=== PATIENT | female | born 1970 | race Caucasian/White ===

== ENCOUNTER 2017-08-16 13:15 | Emergency (ER) | payer OTHER ==
[~2017-08-16] VITALS: Ht 157.5 cm; Wt 95.2 kg
[~2017-08-16 13:15] MED LIST: ALBU90OI INH; AMOX500 PO; Adipex-P37.5 MG PO; BUSP10 PO; BUSP15 PO; CODGUAEL PO; DIAZ5 PO; DICLOFENAC SOD100 G1 TOP; DIPH50 PO; DOXY100 PO; FLUO20 PO; Flonase 0.05% N16 GM; HYDACE5 PO; IBUP800; IBUP800 PO; LOMAIRA8 MG PO; MEDR10 PO; META800 PO; MIRALAX17 GM PO; NAPR500 PO; NAPR550 PO; Norco 5-325 Ta1 EACH PO; OXYACE5T PO; PARO20 PO; PRED10 PO; PROACE100 PO; PROCODE120 PO; PROM25 PO; PSEU30 PO; Percocet 10-321 EACH PO; Prednisone20 MG PO; Pseudoephedrine30 MG PO; RXERYTOPTH OP; RXMETA800 PO; RXNAPNA550 PO; RXOXYACE PO; RXPROACE PO; SIMV10 PO; SULF10OPSA OS; VENLAFAXINE HCL75 MG PO; Valium5 MG PO; WORK NOTE; [UNRECOGNIZED DRUG - REMARK]
[2017-08-16 14:21] LABS: BASOPHILS ABSOLUTE AUTO 0.11 K/mm3 (0.00-0.23); BASOPHILS PERCENT AUTO 1 % (0-2); EOSINOPHILS ABSOLUTE AUTO 0.21 K/mm3 (0.00-0.68); EOSINOPHILS PERCENT AUTO 2 % (0-6); Hematocrit 30.8 % (33.0-51.0); Hemoglobin 9.4 g/dL (11.5-16.0); IMMATURE GRAN ABSOLUTE AUTO 0.02 K/mm3 (0.00-0.10); IMMATURE GRAN PERCENT AUTO 0 % (0-1); LYMPHOCYTES ABSOLUTE AUTO 1.93 K/mm3 (0.84-5.20); LYMPHOCYTES PERCENT AUTO 22 % (21-46); MONOCYTES ABSOLUTE AUTO 0.46 K/mm3 (0.16-1.47); MONOCYTES PERCENT AUTO 5 % (4-13); Mean Corpuscular HGB 22.3 pg (26.0-34.0); Mean Corpuscular HGB Conc 30.5 g/dL (31.5-36.5); Mean Platelet Volume 9.2 fL (9.1-12.4); NEUTROPHILS ABSOLUTE AUTO 6.04 K/mm3 (1.96-9.15); NEUTROPHILS PERCENT AUTO 69 % (41-73); Platelet Count 471 K/mm3 (150-400); RDW Coefficient Variation 15.6 % (11.7-14.2); Red Blood Cell Count 4.21 M/mm3 (3.80-5.20); White Blood Cell Count 8.77 K/mm3 (4.00-11.30)
[2017-08-16 14:23] LABS: Mean Corpuscular Volume 73 fL (80-100)
[2017-08-16 14:33] LABS: Source, Urine Clean Catch
[2017-08-16 14:40] LABS: Bilirubin, Urine Neg (Neg); Blood, Urine 4+ (Neg); Glucose Qualitative, Urine Neg (Neg); Ketones, Urine Neg (Neg); Leukocyte Esterase, Urine 3+ (Neg); Nitrite, Urine Neg (Neg); Protein, Urine Neg (Neg); Urobilinogen, Urine NORM (Normal)
[2017-08-16 14:52] LABS: Alanine Aminotransfer (ALT/SGP 34 U/L (12-78); Albumin, Blood 3.6 g/dL (3.4-5.0); Albumin/Globulin Ratio 0.8 (0.8-1.8); Alk Phos 81 U/L (50-136); Anion Gap 5 mmol/L (6-16); Aspartate Aminotrans (AST/SGOT 16 U/L (12-37); Bilirubin, Total 0.2 mg/dL (0.1-1.0); Blood Urea Nitrogen 15 mg/dL (8-24); Bun/Creatinine Ratio 34.2 (12.0-20.0); CO2, Blood 28 mmol/L (21-32); Calcium, Blood 9.4 mg/dL (8.5-10.1); Chloride, Blood 107 mmol/L (98-108); Creatinine, Blood 0.44 mg/dL (0.40-1.00); Globulin, Blood 4.3 g/dL (2.2-4.0); Glomerular Filtration Rate >60 (60-); Glucose, Blood 114 mg/dL (70-99); Potassium, Blood 3.7 mmol/L (3.5-5.5); Sodium, Blood 140 mmol/L (136-145); Total Protein, Blood 7.9 g/dL (6.4-8.2)
[2017-08-16 15:01] LABS: Appearance, Urine Clear (Clear); Color, Urine Yellow (P-Yellow)
[2017-08-16 15:03] LABS: Bacteria Few /hpf; Squamous Epithelial Cells Few /hpf (Few); White Blood Cells, Urine TNTC /hpf (0-5)
[2017-08-16] MEDS ORDERED: CEFD300 PO (16:49)
[2018-03-30] MEDS ORDERED: Zofran8 MG PO (23:38)
[2018-07-02] MEDS ORDERED: HYDPAM50 PO (23:42)
[2018-07-02] MEDS ORDERED: SIMV10 PO (23:42)
[2018-07-02] MEDS ORDERED: VENL150ER PO (23:42)
== END 2017-08-16 17:40 | disposition home or self-care (01) ==
LOC: ER 13:15
PROVIDERS: Emergency Medicine
DX: G89.18 Other acute postprocedural pain (principal); R10.31 Right lower quadrant pain; N39.0 Urinary tract infection, site not specified; F32.9 Major depressive disorder, single episode, unspecified; Z79.899 Other long term (current) drug therapy; Z90.710 Acquired absence of both cervix and uterus
CPT/HCPCS: 36415; 74177; 80053; 81001; 85025; 87086; 96361; 96374; 96375; 99284; J1885; J2405; J7030; Q9967

== ENCOUNTER 2018-03-15 22:22 | Emergency (ER) | payer OTHER ==
[~2018-03-15] VITALS: Ht 157.5 cm; Wt 90.7 kg
[~2018-03-15 22:22] MED LIST changes: +CEFD300 PO
[2018-03-15 23:20] LABS: BASOPHILS ABSOLUTE AUTO 0.08 K/mm3 (0.00-0.23); BASOPHILS PERCENT AUTO 1 % (0-2); EOSINOPHILS ABSOLUTE AUTO 0.23 K/mm3 (0.00-0.68); EOSINOPHILS PERCENT AUTO 3 % (0-6); Hematocrit 37.5 % (33.0-51.0); Hemoglobin 11.6 g/dL (11.5-16.0); IMMATURE GRAN ABSOLUTE AUTO 0.01 K/mm3 (0.00-0.10); IMMATURE GRAN PERCENT AUTO 0 % (0-1); LYMPHOCYTES ABSOLUTE AUTO 2.76 K/mm3 (0.84-5.20); LYMPHOCYTES PERCENT AUTO 33 % (21-46); MONOCYTES ABSOLUTE AUTO 0.53 K/mm3 (0.16-1.47); MONOCYTES PERCENT AUTO 6 % (4-13); Mean Corpuscular HGB Conc 30.9 g/dL (31.5-36.5); Mean Corpuscular Volume 74 fL (80-100); Mean Platelet Volume 9.5 fL (9.1-12.4); NEUTROPHILS ABSOLUTE AUTO 4.83 K/mm3 (1.96-9.15); NEUTROPHILS PERCENT AUTO 57 % (41-73); Platelet Count 358 K/mm3 (150-400); RDW Standard Deviation 48.5 fL (35.1-46.3); Red Blood Cell Count 5.05 M/mm3 (3.80-5.20); White Blood Cell Count 8.44 K/mm3 (4.00-11.30)
[2018-03-15 23:41] LABS: Alanine Aminotransfer (ALT/SGP 23 U/L (12-78); Albumin, Blood 3.6 g/dL (3.4-5.0); Albumin/Globulin Ratio 0.9 (0.8-1.8); Alk Phos 91 U/L (50-136); Anion Gap 8 mmol/L (6-16); Aspartate Aminotrans (AST/SGOT 24 U/L (12-37); Bilirubin, Total 0.2 mg/dL (0.1-1.0); Blood Urea Nitrogen 15 mg/dL (8-24); Bun/Creatinine Ratio 31.2 (12.0-20.0); CO2, Blood 27 mmol/L (21-32); Calcium, Blood 8.8 mg/dL (8.5-10.1); Chloride, Blood 105 mmol/L (98-108); Creatinine, Blood 0.48 mg/dL (0.40-1.00); Globulin, Blood 4.2 g/dL (2.2-4.0); Glomerular Filtration Rate >60 (60-); Glucose, Blood 115 mg/dL (70-99); Potassium, Blood 3.8 mmol/L (3.5-5.5); Sodium, Blood 140 mmol/L (136-145); Total Protein, Blood 7.8 g/dL (6.4-8.2); Troponin I <0.015 ng/mL (0.000-0.040)
== END 2018-03-16 00:27 | disposition home or self-care (01) ==
LOC: ER 22:22
PROVIDERS: Emergency Medicine
DX: R07.9 Chest pain, unspecified (principal); F41.9 Anxiety disorder, unspecified; F32.9 Major depressive disorder, single episode, unspecified; Z79.899 Other long term (current) drug therapy
CPT/HCPCS: 36415; 71046; 80053; 84484; 85025; 93005; 93010; 99285-25

== ENCOUNTER 2018-03-25 14:52 | Emergency (ER) | payer OTHER ==
[~2018-03-25] VITALS: Ht 157.5 cm; Wt 90.7 kg
[2018-03-25 15:19] LABS: Source, Urine Clean Catch
[2018-03-25 15:28] LABS: Bilirubin, Urine Neg (Neg); Blood, Urine 1+ (Neg); Glucose Qualitative, Urine Neg (Neg); Ketones, Urine Neg (Neg); Leukocyte Esterase, Urine 2+ (Neg); Nitrite, Urine Neg (Neg); Protein, Urine Neg (Neg); Urobilinogen, Urine NORM (Normal)
[2018-03-25 15:42] LABS: Appearance, Urine Clear (Clear); Color, Urine Yellow (P-Yellow)
[2018-03-25 15:42] LABS: BASOPHILS PERCENT AUTO 1 % (0-2); EOSINOPHILS ABSOLUTE AUTO 0.16 K/mm3 (0.00-0.68); EOSINOPHILS PERCENT AUTO 2 % (0-6); Hematocrit 39.1 % (33.0-51.0); Hemoglobin 12.3 g/dL (11.5-16.0); IMMATURE GRAN ABSOLUTE AUTO 0.02 K/mm3 (0.00-0.10); IMMATURE GRAN PERCENT AUTO 0 % (0-1); LYMPHOCYTES ABSOLUTE AUTO 1.83 K/mm3 (0.84-5.20); LYMPHOCYTES PERCENT AUTO 22 % (21-46); MONOCYTES ABSOLUTE AUTO 0.57 K/mm3 (0.16-1.47); MONOCYTES PERCENT AUTO 7 % (4-13); Mean Corpuscular HGB 23.3 pg (26.0-34.0); Mean Corpuscular HGB Conc 31.5 g/dL (31.5-36.5); Mean Corpuscular Volume 74 fL (80-100); Mean Platelet Volume 9.6 fL (9.1-12.4); NEUTROPHILS ABSOLUTE AUTO 5.53 K/mm3 (1.96-9.15); NEUTROPHILS PERCENT AUTO 68 % (41-73); Platelet Count 370 K/mm3 (150-400); RDW Coefficient Variation 18.3 % (11.7-14.2); RDW Standard Deviation 48.8 fL (35.1-46.3); Red Blood Cell Count 5.27 M/mm3 (3.80-5.20); White Blood Cell Count 8.21 K/mm3 (4.00-11.30)
[2018-03-25 15:45] LABS: Bacteria Mod /hpf; Red Blood Cells, Urine 0-2 /hpf (0-2); Squamous Epithelial Cells Many /hpf (Few)
[2018-03-25 16:01] LABS: Alanine Aminotransfer (ALT/SGP 21 U/L (12-78); Albumin, Blood 3.4 g/dL (3.4-5.0); Albumin/Globulin Ratio 0.8 (0.8-1.8); Alk Phos 87 U/L (50-136); Anion Gap 5 mmol/L (6-16); Aspartate Aminotrans (AST/SGOT 17 U/L (12-37); Bilirubin, Total 0.1 mg/dL (0.1-1.0); Blood Urea Nitrogen 13 mg/dL (8-24); Bun/Creatinine Ratio 23.9 (12.0-20.0); CO2, Blood 29 mmol/L (21-32); Calcium, Blood 9.1 mg/dL (8.5-10.1); Chloride, Blood 106 mmol/L (98-108); Creatinine, Blood 0.54 mg/dL (0.40-1.00); Globulin, Blood 4.2 g/dL (2.2-4.0); Glomerular Filtration Rate >60 (60-); Glucose, Blood 107 mg/dL (70-99); Potassium, Blood 4.3 mmol/L (3.5-5.5); Sodium, Blood 140 mmol/L (136-145); Total Protein, Blood 7.6 g/dL (6.4-8.2)
[2018-03-25] MEDS ORDERED: Zofran Odt4 MG SL (17:16)
[2018-03-25] MEDS ORDERED: Omeprazole20 M1 PO (17:16)
[2018-03-30] MEDS ORDERED: Zofran8 MG PO (23:38)
== END 2018-03-25 17:30 | disposition home or self-care (01) ==
LOC: ER 14:52
PROVIDERS: Physician Assistant
DX: R10.11 Right upper quadrant pain (principal); R10.13 Epigastric pain; R11.2 Nausea with vomiting, unspecified; F32.9 Major depressive disorder, single episode, unspecified; Z79.899 Other long term (current) drug therapy
CPT/HCPCS: 36415; 76705; 80053; 81001; 83690; 85025; 87086; 96361; 96374; 96375; 99284-25; C9113; J2405; J7030

== ENCOUNTER 2018-04-02 02:04 | Emergency (ER) | payer OTHER ==
[~2018-04-02] VITALS: Ht 157.5 cm; Wt 91.2 kg
[~2018-04-02 02:04] MED LIST changes: +Omeprazole20 M1 PO; +Zofran Odt4 MG SL; +Zofran8 MG PO
[2018-04-02] MEDS ORDERED: Vistaril50 MG PO (05:49)
== END 2018-04-02 06:00 | disposition home or self-care (01) ==
LOC: ER 02:04
DX: F41.9 Anxiety disorder, unspecified (principal); Z79.899 Other long term (current) drug therapy; F32.9 Major depressive disorder, single episode, unspecified
CPT/HCPCS: 99283; Q3014

== ENCOUNTER 2018-11-01 21:06 | Emergency (ER) | payer OTHER ==
[~2018-11-01] VITALS: Ht 157.5 cm; Wt 90.7 kg
[~2018-11-01 21:06] MED LIST changes: +HYDPAM50 PO; +VENL150ER PO; +Vistaril50 MG PO
== END 2018-11-01 22:10 | disposition home or self-care (01) ==
LOC: ER 21:06
DX: K03.81 Cracked tooth (principal); F32.9 Major depressive disorder, single episode, unspecified; F41.9 Anxiety disorder, unspecified; Z79.899 Other long term (current) drug therapy
CPT/HCPCS: 41899; 99282-25

== ENCOUNTER → 2018-11-20 | Outpatient (CLI) | payer OTHER ==
[2018-11-20 19:26] LABS: Appearance, Urine Clear (Clear); Bilirubin, Urine Neg (Neg); Blood, Urine 2+ (Neg); Color, Urine Yellow (P-Yellow); Glucose Qualitative, Urine Neg (Neg); Ketones, Urine Neg (Neg); Leukocyte Esterase, Urine 1+ (Neg); Nitrite, Urine Neg (Neg); Protein, Urine Neg (Neg); Urobilinogen, Urine NORM (Normal)
[2018-11-20 19:40] LABS: Bacteria Few /hpf; Mucus Light (0-Heavy); Red Blood Cells, Urine 0-2 /hpf (0-2); Squamous Epithelial Cells Mod /hpf (Few)
[2018-11-21 09:52] LABS: Candida species (DNA Probe) Negative (NEGATIVE); G. vaginalis (DNA Probe) Positive (NEGATIVE); T. vaginalis (DNA Probe) Negative (NEGATIVE)
== END | disposition home or self-care (01) ==
LOC: LAB SHORT 19:08 → LAB 19:08
PROVIDERS: Obstetrics & Gynecology
DX: N76.0 Acute vaginitis (principal); R39.9 Unspecified symptoms and signs involving the genitourinary system
CPT/HCPCS: 81001; 87086; 87480; 87510; 87660

== ENCOUNTER 2019-04-07 20:47 | Emergency (ER) | payer OTHER ==
[~2019-04-07] VITALS: Ht 154.9 cm; Wt 90.7 kg
== END 2019-04-07 23:06 | disposition home or self-care (01) ==
LOC: ER 20:47
DX: M72.2 Plantar fascial fibromatosis (principal); F32.9 Major depressive disorder, single episode, unspecified; Z79.899 Other long term (current) drug therapy
CPT/HCPCS: 73630; 99283-25

== ENCOUNTER 2019-05-22 20:51 | Emergency (ER) | payer OTHER ==
[~2019-05-22] VITALS: Ht 157.5 cm; Wt 90.7 kg
[2019-05-22] MEDS ORDERED: IBUP600 PO (21:53)
[2019-05-22 22:12] LABS: BASOPHILS PERCENT AUTO 1 % (0-2); EOSINOPHILS PERCENT AUTO 1 % (0-6); Hematocrit 44.5 % (33.0-51.0); Hemoglobin 14.4 g/dL (11.5-16.0); IMMATURE GRAN ABSOLUTE AUTO 0.05 K/mm3 (0.00-0.10); IMMATURE GRAN PERCENT AUTO 0 % (0-1); LYMPHOCYTES ABSOLUTE AUTO 2.08 K/mm3 (0.84-5.20); LYMPHOCYTES PERCENT AUTO 15 % (21-46); MONOCYTES ABSOLUTE AUTO 0.87 K/mm3 (0.16-1.47); MONOCYTES PERCENT AUTO 6 % (4-13); Mean Corpuscular HGB 27.2 pg (26.0-34.0); Mean Corpuscular HGB Conc 32.4 g/dL (31.5-36.5); Mean Corpuscular Volume 84 fL (80-100); Mean Platelet Volume 9.4 fL (9.1-12.4); NEUTROPHILS ABSOLUTE AUTO 10.78 K/mm3 (1.96-9.15); NEUTROPHILS PERCENT AUTO 77 % (41-73); Platelet Count 333 K/mm3 (150-400); RDW Coefficient Variation 14.7 % (11.7-14.2); RDW Standard Deviation 44.7 fL (35.1-46.3); Red Blood Cell Count 5.29 M/mm3 (3.80-5.20); White Blood Cell Count 14.08 K/mm3 (4.00-11.30)
[2019-05-22 22:30] LABS: Alanine Aminotransfer (ALT/SGP 41 U/L (12-78); Albumin, Blood 3.7 g/dL (3.4-5.0); Albumin/Globulin Ratio 0.9 (0.8-1.8); Alk Phos 84 U/L (50-136); Anion Gap 5 mmol/L (6-16); Aspartate Aminotrans (AST/SGOT 40 U/L (12-37); Bilirubin, Total 0.1 mg/dL (0.1-1.0); Blood Urea Nitrogen 19 mg/dL (8-24); Bun/Creatinine Ratio 32.1 (12.0-20.0); CO2, Blood 27 mmol/L (21-32); Calcium, Blood 9.5 mg/dL (8.5-10.1); Chloride, Blood 108 mmol/L (98-108); Creatinine, Blood 0.59 mg/dL (0.40-1.00); Globulin, Blood 4.1 g/dL (2.2-4.0); Glomerular Filtration Rate >60 (60-); Glucose, Blood 105 mg/dL (70-99); Potassium, Blood 3.7 mmol/L (3.5-5.5); Sodium, Blood 140 mmol/L (136-145); Total Protein, Blood 7.8 g/dL (6.4-8.2)
== END 2019-05-23 00:30 ==
LOC: ER 20:51
PROVIDERS: Emergency Medicine
DX: S80.01XA Contusion of right knee, initial encounter (principal); S60.222A Contusion of left hand, initial encounter; S50.312A Abrasion of left elbow, initial encounter; M25.461 Effusion, right knee; V89.2XXA Person injured in unspecified motor-vehicle accident, traffic, initial encounter
CPT/HCPCS: 71046; 73080; 73130; 73562-RT; 80053; 83690; 85025; 90471; 90714; 99284-25; A9270

== ENCOUNTER → 2019-10-21 | Outpatient (CLI) | payer OTHER ==
[~2019-10-21] MED LIST changes: +IBUP600 PO; +LORCET 5-325 M1 EACH PO
[2019-10-21 19:50] LABS: BASOPHILS PERCENT AUTO 1 % (0-2); EOSINOPHILS ABSOLUTE AUTO 0.16 K/mm3 (0.00-0.68); EOSINOPHILS PERCENT AUTO 1 % (0-6); Hematocrit 44.6 % (33.0-51.0); Hemoglobin 14.4 g/dL (11.5-16.0); IMMATURE GRAN ABSOLUTE AUTO 0.02 K/mm3 (0.00-0.10); IMMATURE GRAN PERCENT AUTO 0 % (0-1); LYMPHOCYTES ABSOLUTE AUTO 2.09 K/mm3 (0.84-5.20); LYMPHOCYTES PERCENT AUTO 18 % (21-46); MONOCYTES ABSOLUTE AUTO 0.73 K/mm3 (0.16-1.47); MONOCYTES PERCENT AUTO 6 % (4-13); Mean Corpuscular HGB 27.3 pg (26.0-34.0); Mean Corpuscular HGB Conc 32.3 g/dL (31.5-36.5); Mean Corpuscular Volume 85 fL (80-100); Mean Platelet Volume 9.8 fL (9.1-12.4); NEUTROPHILS ABSOLUTE AUTO 8.48 K/mm3 (1.96-9.15); NEUTROPHILS PERCENT AUTO 73 % (41-73); Platelet Count 353 K/mm3 (150-400); RDW Coefficient Variation 14.5 % (11.7-14.2); RDW Standard Deviation 44.5 fL (35.1-46.3); Red Blood Cell Count 5.28 M/mm3 (3.80-5.20); White Blood Cell Count 11.58 K/mm3 (4.00-11.30)
[2019-10-21 20:09] LABS: Alanine Aminotransfer (ALT/SGP 22 U/L (12-78); Albumin, Blood 3.7 g/dL (3.4-5.0); Albumin/Globulin Ratio 0.9 (0.8-1.8); Alk Phos 75 U/L (50-136); Anion Gap 4 mmol/L (6-16); Aspartate Aminotrans (AST/SGOT 11 U/L (12-37); Bilirubin, Total 0.2 mg/dL (0.1-1.0); Blood Urea Nitrogen 15 mg/dL (8-24); Bun/Creatinine Ratio 28.6 (12.0-20.0); CO2, Blood 28 mmol/L (21-32); Calcium, Blood 9.8 mg/dL (8.5-10.1); Chloride, Blood 107 mmol/L (98-108); Creatinine, Blood 0.52 mg/dL (0.40-1.00); Globulin, Blood 3.9 g/dL (2.2-4.0); Glomerular Filtration Rate >60 (60-); Glucose, Blood 96 mg/dL (70-99); Potassium, Blood 3.6 mmol/L (3.5-5.5); Sodium, Blood 139 mmol/L (136-145); Total Protein, Blood 7.6 g/dL (6.4-8.2)
== END ==
LOC: LAB SHORT 18:10 → LAB 18:10
PROVIDERS: Nurse Practitioner
DX: T14.90XS Injury, unspecified, sequela (principal)
CPT/HCPCS: 80053; 85025

== ENCOUNTER 2019-10-23 21:01 | Emergency (ER) | payer OTHER ==
[~2019-10-23] VITALS: Ht 157.5 cm; Wt 90.7 kg
== END 2019-10-23 22:10 | disposition left against medical advice (07) ==
LOC: ER 21:01
DX: Z53.21 Procedure and treatment not carried out due to patient leaving prior to being seen by health care provider (principal)
CPT/HCPCS: 99282

== ENCOUNTER 2020-03-14 10:06 | Day surgery (SDC) | payer OTHER ==
[~2020-03-14] VITALS: Ht 156 cm; Wt 102.5 kg
--- NOTE | 2020-03-14 11:14 | NUR ---
Ambulatory in Day Surgery History, Chart, Medications and Allergies reviewed before start of procedure.Patient confirms NPO status and agrees with scheduled surgery. Patient states colon prep results clear.
--- NOTE | 2020-03-14 11:24 | NUR ---
03/14/20 1124 Sandi Rucker History, Chart, Medications and Allergies reviewed before start of procedure. Patient confirms NPO status and agrees with scheduled surgery. PATIENT DETERMINED TO BE ASA APPROPRIATE FOR MODERATE SEDATION PRIOR TO START OF PROCEDURE BY DR. LAINEZ. 3-LEAD EKG REVIEWED WITH PHYSICIAN PRIOR TO START OF PROCEDURE. MONITOR INTACT WITH CONTINUOUS PULSE OXIMETRY AND INTERMITTENT BP.
--- NOTE | 2020-03-14 12:28 | NUR ---
Patient up to Ambulate independently. Gait steady. Discharge instructions reviewed with patient. Patient verbalizes understanding. Copy given to patient to take home. PT RETURNINF TOMORROW AT 1000, PREP WAS NOT SATISFACTORY AND PROCEDURE COULD NOT TAKE PLACE. MARTHA CALLED INTO [facility] FOR PT. Discharged via wheelchair to private car for ride home.
== END 2020-03-14 22:46 | disposition home or self-care (01) ==
LOC: ORSCMMR 10:06 → ORD 10:30 → ORSCMMR 22:46
PROVIDERS: Internal Medicine Gastroenterology
PROC: 0DJD8ZZ Inspection of Lower Intestinal Tract, Via Natural or Artificial Opening Endoscopic (ICD-10-PCS; principal; 2020-03-14 10:30)
DX: Z12.11 Encounter for screening for malignant neoplasm of colon (principal); Z86.010 Personal history of colon polyps; E66.9 Obesity, unspecified; Z68.41 Body mass index [BMI] 40.0-44.9, adult; E11.9 Type 2 diabetes mellitus without complications; G47.30 Sleep apnea, unspecified; E78.00 Pure hypercholesterolemia, unspecified; F41.9 Anxiety disorder, unspecified; Z79.899 Other long term (current) drug therapy
CPT/HCPCS: J2250; J3010; J7120

== ENCOUNTER 2021-11-11 20:18 | Emergency (ER) | payer OTHER ==
[~2021-11-11] VITALS: Ht 157.5 cm; Wt 104.3 kg
== END 2021-11-11 21:31 | disposition home or self-care (01) ==
LOC: ER 20:18
DX: F41.0 Panic disorder [episodic paroxysmal anxiety] (principal); Z79.899 Other long term (current) drug therapy
CPT/HCPCS: 99282; A9270

== ENCOUNTER 2023-04-11 14:56 | Emergency (ER) | payer OTHER ==
[~2023-04-11] VITALS: Ht 157.5 cm; Wt 85.3 kg
[~2023-04-11 14:56] MED LIST changes: +AMOCLA875 PO
[2023-04-11 15:04] VITALS: BP 136/104
[2023-04-11] MEDS ORDERED: BUPR75 PO (16:49)
== END 2023-04-11 18:46 | disposition home or self-care (01) ==
LOC: ER 14:56
DX: F41.9 Anxiety disorder, unspecified (principal); Z79.899 Other long term (current) drug therapy
CPT/HCPCS: 99283; A9270; J2060

== ENCOUNTER 2023-04-21 17:07 | Emergency (ER) | payer OTHER ==
[~2023-04-21] VITALS: Ht 162.6 cm; Wt 65.8 kg
[~2023-04-21 17:07] MED LIST changes: +BUPR75 PO
[2023-04-21 17:14] VITALS: BP 157/67
== END 2023-04-21 17:52 | disposition home or self-care (01) ==
LOC: ER 17:07
DX: F41.9 Anxiety disorder, unspecified (principal)
CPT/HCPCS: 99283; A9270

== ENCOUNTER 2023-04-25 17:17 | Emergency (ER) | payer OTHER ==
[~2023-04-25] VITALS: Ht 157.5 cm; Wt 84.8 kg
[2023-04-25 17:32] VITALS: BP 161/71
[2023-04-25] MEDS ORDERED: ALPR.25 PO (19:35)
== END 2023-04-25 19:39 | disposition home or self-care (01) ==
LOC: ER 17:17
DX: F41.9 Anxiety disorder, unspecified (principal); Z79.899 Other long term (current) drug therapy
CPT/HCPCS: 99283

== ENCOUNTER 2023-06-15 19:55 | Emergency (ER) | payer OTHER ==
[~2023-06-15] VITALS: Ht 157.5 cm; Wt 84.8 kg
[~2023-06-15 19:55] MED LIST changes: +ALPR.25 PO
[2023-06-15 20:06] VITALS: BP 159/71
[2023-06-15] MEDS ORDERED: HYDPAM50 PO (21:40)
== END 2023-06-15 21:46 | disposition home or self-care (01) ==
LOC: ER 19:55
DX: F41.9 Anxiety disorder, unspecified (principal); Z79.899 Other long term (current) drug therapy
CPT/HCPCS: 99283

== ENCOUNTER 2023-08-20 01:29 | Emergency (ER) | payer OTHER ==
[~2023-08-20] VITALS: Ht 154.9 cm; Wt 85.3 kg
[2023-08-20 03:04] VITALS: BP 155/81
== END 2023-08-20 03:00 | disposition home or self-care (01) ==
LOC: ER 01:29
DX: S40.012A Contusion of left shoulder, initial encounter (principal); S70.02XA Contusion of left hip, initial encounter; W00.0XXA Fall on same level due to ice and snow, initial encounter; Z79.899 Other long term (current) drug therapy
CPT/HCPCS: 73030; 96372; 99283-25; A9270; J1885

== ENCOUNTER 2023-09-07 16:28 | Emergency (ER) | payer OTHER ==
[~2023-09-07] VITALS: Ht 157.5 cm; Wt 81.7 kg
[2023-09-07 16:35] VITALS: BP 164/86
[2023-09-07] MEDS ORDERED: Lidocaine 4% 1 Patch TOP ONE (16:55)
[2023-09-07] MEDS ORDERED: OxyCODONE 5 mg/Acetamin 325 mg TABLET PO ONE (16:55)
[2023-09-07] MEDS ORDERED: Ketorolac Tromethamine 30mg Vial IM ONE (16:55)
[2023-09-07] MEDS ORDERED: Acetaminophen 325 MG TABLET PO ONE (16:55)
[2023-09-07] MEDS ORDERED: LIDO700A20 TOP (16:58)
[2023-09-07] MEDS ORDERED: CYCL10 PO (16:58)
[2023-09-07] MEDS ORDERED: Percocet 5-3251 EACH PO (16:58)
== END 2023-09-07 17:30 | disposition home or self-care (01) ==
LOC: ER 16:28
DX: M25.512 Pain in left shoulder (principal); S93.401A Sprain of unspecified ligament of right ankle, initial encounter; F32.A Depression, unspecified; F41.9 Anxiety disorder, unspecified; X58.XXXA Exposure to other specified factors, initial encounter; Z79.899 Other long term (current) drug therapy
CPT/HCPCS: 96372; 99283-25; A9270; J1885

== ENCOUNTER → 2024-03-26 | Outpatient (CLI) | payer OTHER ==
[~2024-03-26] MED LIST changes: +CYCL10 PO; +LIDO700A20 TOP; +Percocet 5-3251 EACH PO
[2024-03-26 15:13] LABS: Albumin, Blood 3.6 g/dL (3.4-5.0); Albumin/Globulin Ratio 0.9 (0.8-1.8); Bilirubin, Total 0.4 mg/dL (0.1-1.0); Bun/Creatinine Ratio 30.1 (12.0-20.0); Calcium, Blood 9.8 mg/dL (8.5-10.1); Creatinine, Blood 0.53 mg/dL (0.40-1.00); Potassium, Blood 4.9 mmol/L (3.5-5.5); Total Protein, Blood 7.6 g/dL (6.4-8.2)
== END ==
LOC: LAB SHORT 13:21 → LAB 13:21
PROVIDERS: Family Medicine
DX: F41.1 Generalized anxiety disorder (principal)
CPT/HCPCS: 80053

== ENCOUNTER 2024-10-13 18:44 | Emergency (ER) | payer OTHER ==
[~2024-10-13] VITALS: Ht 157.5 cm; Wt 86.2 kg
[~2024-10-13 18:44] MED LIST changes: +OSEL75CA PO
[2024-10-13 18:50] VITALS: BP 117/79
[2024-10-13 19:45] LABS: BASOPHILS ABSOLUTE AUTO 0.11 K/mm3 (0.00-0.23); BASOPHILS PERCENT AUTO 1 % (0-2); EOSINOPHILS ABSOLUTE AUTO 0.21 K/mm3 (0.00-0.68); EOSINOPHILS PERCENT AUTO 1 % (0-6); Hematocrit 40.7 % (33.0-51.0); Hemoglobin 13.5 g/dL (11.5-16.0); IMMATURE GRAN ABSOLUTE AUTO 0.06 K/mm3 (0.00-0.10); IMMATURE GRAN PERCENT AUTO 0 % (0-1); LYMPHOCYTES ABSOLUTE AUTO 2.74 K/mm3 (0.84-5.20); LYMPHOCYTES PERCENT AUTO 17 % (21-46); MONOCYTES ABSOLUTE AUTO 1.11 K/mm3 (0.16-1.47); MONOCYTES PERCENT AUTO 7 % (4-13); Mean Corpuscular HGB 27.8 pg (26.0-34.0); Mean Corpuscular HGB Conc 33.2 g/dL (31.5-36.5); Mean Corpuscular Volume 84 fL (80-100); Mean Platelet Volume 9.2 fL (9.1-12.4); NEUTROPHILS ABSOLUTE AUTO 11.76 K/mm3 (1.96-9.15); NEUTROPHILS PERCENT AUTO 74 % (41-73); Platelet Count 296 K/mm3 (150-400); RDW Coefficient Variation 13.9 % (11.7-14.2); RDW Standard Deviation 42.9 fL (35.1-46.3); Red Blood Cell Count 4.85 M/mm3 (3.80-5.20); White Blood Cell Count 15.99 K/mm3 (4.00-11.30)
[2024-10-13 20:13] LABS: CORONAVIRUS COVID-19 AG Negative (NEGATIVE); INFLUENZA A AG Negative (NEGATIVE); INFLUENZA B AG Negative (NEGATIVE)
[2024-10-13 20:17] LABS: Albumin, Blood 3.4 g/dL (3.4-5.0); Albumin/Globulin Ratio 0.8 (0.8-1.8); Bilirubin, Total 0.3 mg/dL (0.1-1.0); Bun/Creatinine Ratio 28.7 (12.0-20.0); Calcium, Blood 10.1 mg/dL (8.5-10.1); Creatinine, Blood 0.52 mg/dL (0.40-1.00); Globulin, Blood 4.1 g/dL (2.2-4.0); Potassium, Blood 3.7 mmol/L (3.5-5.5); Thyroid Stimulating Hormone 1.5 uIU/mL (0.360-4.800); Total Protein, Blood 7.5 g/dL (6.4-8.2)
[2024-10-13] MEDS ORDERED: BENZ100A PO (20:27)
[2024-10-13] MEDS ORDERED: IBUP600 PO (20:27)
== END 2024-10-13 20:48 | disposition home or self-care (01) ==
LOC: ER 18:44
PROVIDERS: Emergency Medicine
DX: B34.9 Viral infection, unspecified (principal); Z79.899 Other long term (current) drug therapy
CPT/HCPCS: 71045; 80053; 84443; 85025; 87428-QW; 99283-25

== ENCOUNTER 2025-06-18 19:41 | Emergency (ER) | payer OTHER ==
[~2025-06-18] VITALS: Ht 154.9 cm; Wt 88.5 kg
[~2025-06-18 19:41] MED LIST changes: +BENZ100A PO; +FAMO20 PO; +ONDA4ODT MM
[2025-06-18 20:07] VITALS: BP 153/77
[2025-06-18] MEDS ORDERED: Ketorolac Tromethamine 30mg Vial IM ONE (20:20)
[2025-06-18] MEDS ORDERED: RX Prepack 2 Tabs Ondansetron ODT 4MG UD ONE (22:20)
[2025-06-18] MEDS ORDERED: Ondansetron 4 MG SoluTab BC ONE (22:20)
[2025-06-18] MEDS ORDERED: FAMO20 PO (22:23)
[2025-06-18] MEDS ORDERED: IBU600 M1 PO (22:23)
[2025-06-18] MEDS ORDERED: ONDA4ODT MM (22:23)
== END 2025-06-18 22:29 | disposition home or self-care (01) ==
LOC: ER 19:41
DX: M25.512 Pain in left shoulder (principal); M25.521 Pain in right elbow; M25.531 Pain in right wrist; R11.0 Nausea; V89.2XXA Person injured in unspecified motor-vehicle accident, traffic, initial encounter; Z79.899 Other long term (current) drug therapy
CPT/HCPCS: 72125; 72128; 72131; 73030; 73070; 73100; 96372; 99284-25; A9270; J1885